=== PATIENT | female | born 1990 | race Caucasian/White ===

== ENCOUNTER 2017-07-11 18:21 | Emergency (ER) | payer BC, OTHER ==
[~2017-07-11] VITALS: Ht 152.4 cm; Wt 47.6 kg
[~2017-07-11 18:21] MED LIST: IBUPROFEN600 MG ORAL; ZITHROMAX250 MG ORAL
[2017-07-11 18:55] VITALS: BP 118/78
[2017-07-11] MEDS ORDERED: Lidocaine 1% MPF 10mg/ml 5ml INJ ONE (19:00)
[2017-07-11] MEDS ORDERED: Tetanus/Diptheria/Pertussis Vaccine 0.5ml Syr IM ONE (19:00)
--- NOTE | 2017-07-11 19:49 | Emergency Room Report ---
History of Present Illness General Chief Complaint: Laceration Present Illness HPI 26-year-old female presents to the emergency department complaining of laceration to the right thumb times one hour. Patient reports accidentally sustaining a laceration when removing plastic cover to kitchen knife. Patient denies taking blood thinning medication she denies pain at this time she reports she is up-to-date with her tetanus I'm just had it last year. Patient is right-hand dominant. Denies numbness tingling or loss of sensation or gross motor movements of the extremities,. Denies CP, Palpitations, AMS, dizziness, Changes in Vision, Sensation, paresthesias, or a sudden severe headache. Allergies: Coded Allergies: PENICILLINS (Verified Allergy, Intermediate, 12/21/13) Patient History Past Medical History: see triage record Past Surgical History: none Pertinent Family History: none Now: No Immunizations: UTD Reviewed Nursing Documentation: PMH: Agreed, PSxH: Agreed Nursing Documentation-PMH Hx Asthma: Yes - Last Asthma attack Apr in 2012 Review of Systems All Other Systems: negative except mentioned in HPI Physical Exam Vital Signs Date Time Temp Pulse Resp B/P (MAP) Pulse Ox O2 Delivery O2 Flow Rate FiO2 07/11/17 18:24 97.5 101 20 118/78 99 Room Air Sp02 EP Interpretation: reviewed, normal General Appearance: no apparent distress, alert, GCS 15, non-toxic Head: normocephalic, atraumatic ENT: hearing grossly normal, normal voice Neck: full range of motion Respiratory: lungs clear, normal breath sounds, speaking full sentences Cardiovascular #1: regular rate, rhythm, normal capillary refill Rectal: deferred Musculoskeletal: back normal, gait/station normal, normal range of motion Neurologic: alert, oriented x3, responsive, motor strength/tone normal, sensory intact, speech normal, grossly normal Psychiatric: judgement/insight normal Skin: normal color, no rash, warm/dry, well hydrated, laceration - distal right thumb laceration 1 cm in length. mild bleeding at this time. Lymphatic: no adenopathy Procedures Laceration/Wound Repair Laceration/Wound Repair : Consent: Verbal Wound Location: upper extremity - right thumb Wound's Depth, Shape: linear Wound Length (cm): 1 Wound Explored: clean Irrigated w/ Saline (ccs): 500 Betadine Prep?: No Anesthesia: 1% Lidocaine Volume Anesthetic (ccs): 5 Wound Repaired With: sutures Suture Size/Type: 5:0 Number of Sutures: 3 Layer Closure?: No Sterile Dressing Applied?: Yes Splint Applied?: Yes Type of Splint Applied: Finger SPlint Sling Applied?: No Patient Tolerated: Well Complications: None Medical Decision Making PA Attestation Dr. Elam is my supervising Physician whom patient management has been discussed with. Diagnostic Impression: Primary Impression: Laceration ER Course Pt. presents to the ED c/o laceration to Right Thumb. Ddx considered but are not limited to laceration, tendon injury, cellulitis, amputation Vital signs: are WNL, pt. is afebrile H&PE are most consistent with: Distal right thumb laceration approx 1 cm in length ORDERS: none required at this time, the diagnosis is clinical ED INTERVENTIONS: - The wound was copiously irrigated with normal saline, and explored for foreign body for which no FB was found. - pt. is anesthetized with 1%lidocaine . - The wound was approximated and closed using 3 interrupted 5.0 Prolene sutures. -Bacitracin and sterile dressing is applied. - Finger Splint applied by technology sales specialist. Pt. remains neurovascularly intact. Discussed with patient: That we make every effort to approximate the laceration as best as we can so that scarring will be as cosmetically pleasing as possible with our limited cosmetic skill set in the Emergency dept. Regardless of our best efforts there will be scarring after laceration repair. The extent of scarring is unknown at this time. DISCHARGE: At this time pt. is stable for d/c to home. Will provide printed patient care instructions, and any necessary prescriptions. Care plan and follow up instructions have been discussed with the patient prior to discharge. Last Vital Signs Date Time Temp Pulse Resp B/P (MAP) Pulse Ox O2 Delivery O2 Flow Rate FiO2 07/11/17 18:55 97.5 99 20 118/78 99 Room Air Disposition: HOME, SELF-CARE Condition: Stable Scripts Acetaminophen* (TYLENOL EXTRA STRENGTH*) 500 Mg Tablet 500 MG ORAL Q6H, #20 TAB 0 Refills Prov: Paulette Harman P.A. 07/11/17 Tramadol Hcl* (ULTRAM*) 50 Mg Tablet 50 MG ORAL QHS Y for For Pain, #1 TAB 0 Refills Prov: Paulette Harman P.A. 07/11/17 Cephalexin* (KEFLEX*) 500 Mg Capsule 500 MG ORAL EVERY 12 HOURS for 7 Days, #14 CAP 0 Refills Prov: Paulette Harman 07/11/17 Patient Instructions: Laceration Care, Adult Additional Instructions: Take medications as directed. Follow up with a Primary Care Provider in 3-5 days, even if your symptoms have resolved. --Please review list of primary care clinics, if you do not already have a primary care provider Return sooner to ED if new symptoms occur, or current symptoms become worse. - Please note that this Emergency Department Report was dictated using [employer] technology software, occasionally this can lead to erroneous entry secondary to interpretation by the dictation equipment. Paulette Harman Jul 11, 2017 19:49
[2017-07-11] MEDS ORDERED: TRAMADOL HCL50 MG ORAL (20:13)
[2017-07-11] MEDS ORDERED: TYLENOL EXTRA500 MG ORAL (20:13)
[2017-07-11] MEDS ORDERED: CEPHALEXIN500 MG ORAL (20:13)
[2017-07-11] MEDS ORDERED: Bacitracin Oint UD TOPIC ONE (20:15)
[2017-07-11 20:55] VITALS: BP 105/61
[2017-07-11 21:10] VITALS: BP 105/61
== END 2017-07-11 21:10 | disposition home or self-care (01) ==
LOC: EMR 20:26
DX: S61.011A Laceration without foreign body of right thumb without damage to nail, initial encounter (principal); W26.0XXA Contact with knife, initial encounter; Y92.000 Kitchen of unspecified non-institutional (private) residence as the place of occurrence of the external cause; Z88.0 Allergy status to penicillin; J45.909 Unspecified asthma, uncomplicated
CPT/HCPCS: 99283